=== PATIENT | male | born 1970 | race Two or more races ===

== ENCOUNTER 2019-11-08 16:46 | Emergency (ER) | payer OTHER ==
[~2019-11-08] VITALS: Ht 175.3 cm; Wt 116.0 kg
[2019-11-08 16:49] VITALS: BP 128/71
== END 2019-11-08 18:04 | disposition home or self-care (01) ==
LOC: ED 17:45
DX: U07.1 COVID-19 (principal)
CPT/HCPCS: 99283; U0001